=== PATIENT | male | born 1960 | race Two or more races ===

== ENCOUNTER 2024-11-07 16:54 | Emergency (ER) | payer MEDICARE, MEDICAID, SELFPAY ==
[2024-11-07 16:55] VITALS: BMI 27.4
[2024-11-07 18:09] VITALS: BP 179/80; PULSE 83; RESP 18; TEMP 37.1; O2SAT 98; BMI 28.0
--- NOTE | 2024-11-07 18:40 | EDNOTE_ITS ---
ED Skin Abcess FB-RME/HPI General Chief complaint: Skin/Abscess/Foreign Body Stated complaint: PAIN RIGH ABD, HAS SHINGLES Time Seen by Provider: 11/07/24 18:40 Arrival date/time: 11/07/24 16:54 64 year old male present to emergency room with c/o of rash on abdominal for 2 weeks. per family rash has improved but patient report burning and tingling sensation that is worse at night. LOCATION: abdominal SEVERITY: Symptoms are described as being severe with limitations on activities of daily living QUALITY: Symptoms are described as being dull or achy CONTEXT: The patient is unable to identify any inciting events. DURATION/TIMING: The symptoms started approximately 14 days ago and improving ASSOCIATED SYMPTOMS: The patient is unable to identify any other associated symptoms. MODIFYING FACTORS: The patient is unable to identify any alleviating or aggravating symptoms. PERTINENT ROS: denies any penetrating trauma, no nause,vomiting, diarrhea, fever, dysuria, urgency,frequency, no headache, no chest pain REVIEW OF SYSTEMS: See History of Present Illness - with the exception of those mentioned in the history of present illness, all other systems reviewed and reported as negative GENERAL: In general the patient is awake, interactive, in an emergency department gurney. HEAD/EYES/EARS/NOSE/THROAT: normo-cephalic, atraumatic, mucus membranes are moist, anicteric, palpebral conjunctiva is pink, trachea is midline. CARDIOVASCULAR: regular rate and regular rhythm, no murmurs, heart sounds are not distant, strong pulses in all four extremities that are equal and symmetric bilateral upper and lower extremities, normal capillary refill. ABDOMEN: soft, not tender, no masses appreciated: right side/flank shingle like rash healing, without drainage. BACK: normal range of motion without pain. NEUROLOGICAL: cranio-facial features are symmetric, moves all four extremities equally without obvious limitations or weakness. EXTREMITY: no tenderness to palpation over the long bones or large joints of the bilateral upper and lower extremities, no joint swelling, no joint erythema, no signs of trauma, no unilateral leg swelling and no peripheral edema. SKIN: warm, dry, well-perfused, no jaundice, no rash, no telangiectasias or petechia. PSYCH: calm, cooperative, no evidence of psychosis or agitation Related Data Home Medications ?Medication ?Instructions ?Recorded ?Confirmed amlodipine 5 mg tablet 5 mg PO QDAY 02/03/23 02/03/23 folic acid 1 mg tablet 1 mg PO QDAY 02/03/23 02/03/23 pantoprazole 40 mg tablet,delayed 40 mg PO QDAY 02/03/23 02/03/23 release Previous Rx's ?Medication ?Instructions ?Recorded metoprolol succinate 25 mg 25 mg PO QDAY 1 month #30 tabs 02/06/23 tablet,extended release 24 hr amoxicillin 500 mg capsule 500 mg PO BID #20 caps 04/09/23 gabapentin 300 mg capsule 300 mg PO TAPER pain #20 caps 11/07/24 Allergies Allergy/AdvReac Type Severity Reaction Status Date / Time lisinopril Allergy Severe Anaphylaxis Verified 11/07/24 16:57 Course Course Course Narrative: Patient presenting with rash on abd for 2 weeks.? Presentation consistent with Herpes Zoster.? No evidence of eye involvement.? No evidence of infections including cellulitis, measles, rubella.? Supportive therapies discussed.? Antiviral therapy prescribed. Discussed with patient that zoster patients may have pain persisting despite medications.? Return if having high fever, significant spread, pain, eye involvement, or other concerns. Plan:? Educated Pt on Dx of Herpes zoster, including typical resolution in 2-4wk? out the window for antiviral? rx: gabapent 300mg for pain? Advised on OTC acetaminophen or ibuprofen as directed for pain Advised Pt on supportive therapies, including application of warm compresses for pain control, loose/open shirts to decrease skin irritation, gently washing blisters w/ soap and H2O, refrain from opening any blisters, OTC analgesics, calamine lotion, and covering any ruptured lesions. Instructed patient to monitor for signs of worsening pain or fever, neck stiffening, hearing loss, decreased cognition, worsening inflammation, or blistering with discharge.? Return with new or worsening symptoms.?? Quality Measures none Orders Category Date Time Status Gabapentin [Neurontin] Med 11/07/24 18:40 Discontinued 300 mg PO X1 ONE Ketorolac Inj [Toradol Inj] Med 11/07/24 18:40 Discontinued 30 mg IM X1 ONE Vital Signs Vital signs: Vital Signs Temperature 98.8 F 11/07/24 18:09 Pulse Rate 83 11/07/24 18:09 Respiratory Rate 18 11/07/24 18:09 Blood Pressure 179/80 H 11/07/24 18:09 Pulse Oximetry (%) 98 11/07/24 18:09 Oxygen Delivery Method Room Air 11/07/24 18:09 Skin / Abscess / Foreign Body Patient data External records reviewed:: [facility] previous records Clinical information provided by:: patient and family Social determinants that could affect healthcare access:: none Patient has the following chronic illnesses:: per patient chart How is presenting disease/condition affected by chronic disease/condition?: uneffected by Evaluation data The following diagnostics were reviewed and interpreted by me:: other (specify) (none ) Lab and/or radiology exams considered but not ordered:: none Interpretation Summary: none Medications / Prescriptions Medications or Prescriptions considered but not ordered:: none Medication administrations:: Medication Administration History Discontinued Medications Gabapentin (Gabapentin 300 Mg Capsule) 300 mg PO X1 ONE Stop: 11/07/24 18:41 Ketorolac Tromethamine (Ketorolac Inj 60 Mg/2 Ml Vial) 30 mg IM X1 ONE Stop: 11/07/24 18:41 as stated above Consultations Consultation(s) initiated? (list below): No Diagnosis Skin/Abscess Differential Diagnosis: herpes zoster, cellulitis, eczema, insect bites and contact dermatitis Most likely diagnosis given after review of the tests above:: shingles, healing Admission Indicated Admission indicated?: not indicated Admission Request Was there a request for admission?: No Disposition Plan Disposition Plan: Discharge Discharge Attestation Discharge Attestation: The patient and all family members were given an opportunity to ask questions and understood the discharge instructions. Discharge instructions specifically effects, indications for sooner follow up or return to the emergency department, and the expected course of current diagnosis. Patient condition: Stable Discharge Plan Plan Patient Disposition: HOME (Self Care) Health Concerns: Follow with PMD as directed motrin as need Return to ED if sx worsen Prescriptions/Referrals Prescriptions/Med Rec: New gabapentin 300 mg capsule 300 mg PO TAPER Qty: 20 0RF Rx Instructions: 300mg daily for 1 day, then 300mg po twice a day for 1 day, then 300mg three times a day until finish. No Action amlodipine 5 mg tablet 5 mg PO QDAY pantoprazole 40 mg tablet,delayed release (DR/EC) 40 mg PO QDAY folic acid 1 mg tablet 1 mg PO QDAY metoprolol succinate 25 mg Tablet Extended Release 24 Hr 25 mg PO QDAY 30 Days Qty: 30 2RF amoxicillin 500 mg capsule 500 mg PO BID Qty: 20 0RF Problem List Clinical Impression: Shingles Patient/Caregiver Discharge Instructions Education Materials: ED Shingles (Herpes Zoster) Print Language: Italian Stand Alone Forms: Trinh Award Info., Patient Portal Info Letter
[2024-11-07] MEDS: GABAPENTIN 300 MG CAPSULE PO (19:01)
[2024-11-07] MEDS: KETOROLAC INJ 60 MG/2 ML VIAL 30 MG IM (19:02)
== END 2024-11-07 19:06 | disposition home or self-care (01) ==
PROVIDERS: Emergency Provider Emergency Medicine; PCP Physician Assistant
DX: B02.9 Zoster without complications (principal)
CPT/HCPCS: 96372; 99283; J1885; A9270